=== PATIENT | female | born 1965 | race Two or more races ===

== ENCOUNTER 2022-05-02 17:49 | Inpatient (IN) | payer OTHER ==
[2022-05-02 18:57] VITALS: BMI 38.0
[2022-05-02] MEDS ORDERED: ACETAMINOPHEN 325 MG TABLET (FP) PO PRN ×2 (21:09)
[2022-05-02] MEDS ORDERED: IBUPROFEN 600 MG TABLET (FP) PO PRN (21:09)
[2022-05-02] MEDS ORDERED: MAGNESIUM HYDROX 2400MG/30ML ORAL SUSPENSION 30 ML CUP PO PRN (21:09)
[2022-05-02] MEDS ORDERED: NICOTINE 7 MG/24 HOURS TOPICAL PATCH TD PRN (21:09)
[2022-05-02] MEDS ORDERED: BENZOCAINE/MENTHOL (CHLORASEPTIC ) LOZENGE MM PRN (21:09)
[2022-05-02] MEDS ORDERED: DICYCLOMINE HCL 10 MG CAPSULE PO PRN (21:09)
[2022-05-02] MEDS ORDERED: MAG HYDROX/AL HYDROX/SIMETH 30 ML UNIT-DOSE CUP PO PRN (21:09)
[2022-05-02] MEDS ORDERED: NICOTINE POLACRILEX 2 MG GUM BUC PRN (21:09)
[2022-05-02] MEDS ORDERED: BISMUTH SUBSALICYLATE 524 MG/30 ML PO PRN (21:09)
[2022-05-02] MEDS ORDERED: P-EPHED 60MG/TRIPROLIDI 2.5MG TABLET PO PRN (21:09)
[2022-05-02] MEDS ORDERED: LOPERAMIDE HCL 2 MG CAPSULE PO PRN (21:09)
[2022-05-02] MEDS ORDERED: MAGNESIUM CITRATE 300 ML BOTTLE PO PRN (21:09)
[2022-05-02] MEDS ORDERED: guaiFENesin 200 MG/10 ML 10 ML UNIT-DOSE CUPS PO PRN (21:09)
[2022-05-02] MEDS ORDERED: IBUPROFEN 400 MG TABLET (FP) PO PRN (21:09)
[2022-05-02] MEDS ORDERED: chlordiazePOXIDE HCL 25 MG CAPSULE PO PRN (21:14)
[2022-05-02] MEDS: THIAMINE HCL 100 MG TABLET (FP) PO SCH (23:58)
[2022-05-02] MEDS: MELATONIN 5 MG TABLETS PO PRN (23:59)
[2022-05-02] MEDS: METHOCARBAMOL 500 MG TABLET PO PRN (23:59)
[2022-05-02] MEDS: hydrOXYzine PAMOATE 25 MG CAPSULE (FP) PO PRN (23:59)
[2022-05-02] MEDS: chlordiazePOXIDE HCL 25 MG CAPSULE PO SCH (23:59)
[2022-05-03] MEDS: chlordiazePOXIDE HCL 25 MG CAPSULE PO SCH ×2 (06:28→11:09)
[2022-05-03] MEDS ORDERED: methaDONE HCL 10 MG TABLET PO ONE (10:38)
[2022-05-03] MEDS: PRENATAL VITAMINS W/ FOLIC ACID TABLET (FP) PO SCH (11:08)
[2022-05-03] MEDS: METHOCARBAMOL 500 MG TABLET PO PRN (11:08)
[2022-05-03] MEDS: ASPIRIN 81 MG CHEWABLE TABLETS PO SCH (11:09)
[2022-05-03 12:44] LABS: CHLORIDE 91 mmol/L (98-107); SODIUM 133 mmol/L (136-145)
[2022-05-03 12:49] LABS: HEMATOCRIT 33.3 % (32.4-45.2); HEMOGLOBIN 10.8 GM/dL (10.7-15.3); MCH 26.7 pg (25.7-33.7); MCHC 32.4 g/dl (32.0-36.0); MEAN CELL VOLUME 82.4 fl (80-96); MEAN PLT VOLUME 8.3 fl (7.5-11.1); PLATELET COUNT 115 10^3/uL (134-434); RBC 4.04 M/mm3 (3.60-5.2); RDW 15.9 % (11.6-15.6); WHITE BLOOD COUNT 3.7 K/mm3 (4.0-10.0)
[2022-05-03 12:52] LABS: BLOOD UREA NITROGEN 10.7 mg/dL (7-18); CALCIUM 8.1 mg/dL (8.5-10.1); CO2 35 mmol/L (21-32); GLUCOSE,RANDOM 104 mg/dL (74-106)
[2022-05-03 12:53] LABS: ALBUMIN 2.3 g/dl (3.4-5.0)
[2022-05-03 12:55] LABS: CREATININE 0.9 mg/dL (0.55-1.3); SGPT/ALT 128 U/L (13-61)
[2022-05-03 12:56] LABS: BILIRUBIN,TOTAL 1.3 mg/dL (0.2-1); SGOT/AST 162 U/L (15-37)
[2022-05-03 12:57] LABS: TOT PROT 5.6 g/dl (6.4-8.2)
[2022-05-03 12:59] LABS: ALK PHOS 194 U/L (45-117)
[2022-05-03 13:05] LABS: ANION GAP 8 MMOL/L (8-16)
[2022-05-03] MEDS ORDERED: LORazepam 1 MG TABLET PO PRN (13:23)
[2022-05-03] MEDS ORDERED: MAGNESIUM HYDROX 2400MG/30ML ORAL SUSPENSION 30 ML CUP PO ONE (13:38)
[2022-05-03] MEDS ORDERED: POTASSIUM CHLORIDE ORAL LIQUID 20 MEQ/15 ML PO ONE ×2 (14:00→18:00)
[2022-05-03] MEDS: DOCUSATE SODIUM 100 MG CAPSULE (FP) PO SCH (14:07)
[2022-05-03] MEDS: CALCIUM 250MG/VIT-D 125 UNITS 1 COMBO TABLET PO SCH (15:48)
[2022-05-03] MEDS: LORazepam 2 MG TABLET PO SCH (19:14)
[2022-05-03] MEDS: hydrOXYzine PAMOATE 25 MG CAPSULE (FP) PO PRN (19:14)
[2022-05-04] MEDS: LORazepam 2 MG TABLET PO SCH ×5 (00:11→22:39)
[2022-05-04] MEDS: ASPIRIN 81 MG CHEWABLE TABLETS PO SCH ×3 (00:11→22:38)
[2022-05-04] MEDS: THIAMINE HCL 100 MG TABLET (FP) PO SCH ×2 (00:12→22:39)
[2022-05-04] MEDS: DOCUSATE SODIUM 100 MG CAPSULE (FP) PO SCH ×4 (00:12→22:38)
[2022-05-04] MEDS ORDERED: chlordiazePOXIDE HCL 25 MG CAPSULE PO SCH (05:00)
[2022-05-04] MEDS ORDERED: methaDONE HCL 10 MG TABLET PO ONE (06:00)
[2022-05-04] MEDS: PRENATAL VITAMINS W/ FOLIC ACID TABLET (FP) PO SCH (10:43)
[2022-05-04] MEDS: CALCIUM 250MG/VIT-D 125 UNITS 1 COMBO TABLET PO SCH (10:43)
[2022-05-04] MEDS: METHOCARBAMOL 500 MG TABLET PO PRN ×2 (10:44→18:01)
[2022-05-04] MEDS: hydrOXYzine PAMOATE 25 MG CAPSULE (FP) PO PRN (18:01)
[2022-05-04] MEDS: MELATONIN 5 MG TABLETS PO PRN (22:38)
[2022-05-05] MEDS ORDERED: chlordiazePOXIDE HCL 10 MG CAPSULE PO PRN
[2022-05-05] MEDS ORDERED: chlordiazePOXIDE HCL 10 MG CAPSULE PO SCH (05:00)
[2022-05-05] MEDS: DOCUSATE SODIUM 100 MG CAPSULE (FP) PO SCH ×3 (06:05→22:59)
[2022-05-05] MEDS: LORazepam 1 MG TABLET PO SCH ×4 (06:05→22:59)
[2022-05-05] MEDS: hydrOXYzine PAMOATE 25 MG CAPSULE (FP) PO PRN (06:05)
[2022-05-05] MEDS: ASPIRIN 81 MG CHEWABLE TABLETS PO SCH ×2 (10:28→22:59)
[2022-05-05] MEDS: PRENATAL VITAMINS W/ FOLIC ACID TABLET (FP) PO SCH (10:28)
[2022-05-05] MEDS: CALCIUM 250MG/VIT-D 125 UNITS 1 COMBO TABLET PO SCH (10:28)
[2022-05-05] MEDS: METHOCARBAMOL 500 MG TABLET PO PRN (10:28)
[2022-05-05] MEDS ORDERED: methaDONE HCL 10 MG TABLET PO ONE (12:07)
[2022-05-05] MEDS ORDERED: cloNIDine HCL 0.1 MG TABLET PO PRN (14:21)
[2022-05-05] MEDS: ENALAPRIL MALEATE 10 MG TABLET PO SCH (15:06)
[2022-05-05] MEDS: THIAMINE HCL 100 MG TABLET (FP) PO SCH (22:59)
[2022-05-06] MEDS ORDERED: LORazepam 0.5 MG TABLET PO PRN
[2022-05-06] MEDS ORDERED: chlordiazePOXIDE HCL 10 MG CAPSULE PO SCH (05:00)
[2022-05-06] MEDS ORDERED: methaDONE HCL 40 MG DISPERSABLE TABLET PO SCH (06:00)
[2022-05-06] MEDS: LORazepam 0.5 MG TABLET PO SCH ×4 (06:05→23:00)
[2022-05-06] MEDS: DOCUSATE SODIUM 100 MG CAPSULE (FP) PO SCH ×3 (06:05→22:58)
[2022-05-06] MEDS: ENALAPRIL MALEATE 10 MG TABLET PO SCH (10:43)
[2022-05-06] MEDS: PRENATAL VITAMINS W/ FOLIC ACID TABLET (FP) PO SCH (10:43)
[2022-05-06] MEDS: ASPIRIN 81 MG CHEWABLE TABLETS PO SCH ×2 (10:43→22:58)
[2022-05-06] MEDS: CALCIUM 250MG/VIT-D 125 UNITS 1 COMBO TABLET PO SCH (10:43)
[2022-05-06] MEDS: METHOCARBAMOL 500 MG TABLET PO PRN ×2 (10:46→19:37)
[2022-05-06] MEDS: ONDANSETRON *ODT* 4 MG TABLET SL PRN (11:01)
[2022-05-06] MEDS: THIAMINE HCL 100 MG TABLET (FP) PO SCH (22:58)
[2022-05-06] MEDS: MELATONIN 5 MG TABLETS PO PRN (22:58)
[2022-05-07] MEDS: ONDANSETRON *ODT* 4 MG TABLET SL PRN (04:00)
[2022-05-07] MEDS ORDERED: LORazepam 0.5 MG TABLET PO ONE (05:00)
[2022-05-07] MEDS ORDERED: chlordiazePOXIDE HCL 10 MG CAPSULE PO ONE (05:00)
[2022-05-07] MEDS: DOCUSATE SODIUM 100 MG CAPSULE (FP) PO SCH (06:16)
[2022-05-07] MEDS ORDERED: TRIMETHOBENZAMIDE HCL 200MG/2ML INJ IM PRN (09:13)
[2022-05-07] MEDS: ASPIRIN 81 MG CHEWABLE TABLETS PO SCH (11:14)
[2022-05-07] MEDS: hydrOXYzine PAMOATE 25 MG CAPSULE (FP) PO PRN (11:14)
[2022-05-07] MEDS: PRENATAL VITAMINS W/ FOLIC ACID TABLET (FP) PO SCH (11:14)
[2022-05-07] MEDS: ENALAPRIL MALEATE 10 MG TABLET PO SCH (11:14)
[2022-05-07] MEDS: CALCIUM 250MG/VIT-D 125 UNITS 1 COMBO TABLET PO SCH (11:14)
[2022-05-07 13:29] VITALS: BP 147/102; PULSE 120; RESP 16; TEMP 97.1
== END 2022-05-07 13:45 | disposition short-term general hospital (02) | DRG 773 ==
LOC: YASAS 17:49 → Y6N 23:14
PROVIDERS: ADMIT Allergy & Immunology; ATTEND Surgery
PROC: HZ2ZZZZ Detoxification Services for Substance Abuse Treatment (ICD-10-PCS; principal; 2022-05-02)
DX: F10.230 Alcohol dependence with withdrawal, uncomplicated (principal); F11.20 Opioid dependence, uncomplicated; F17.210 Nicotine dependence, cigarettes, uncomplicated; E58 Dietary calcium deficiency; I10 Essential (primary) hypertension; R94.31 Abnormal electrocardiogram [ECG] [EKG]; R79.89 Other specified abnormal findings of blood chemistry; R74.8 Abnormal levels of other serum enzymes; Z59.00 Homelessness unspecified
CPT/HCPCS: 36415; 80053; 82962; 84132; 84450; 85027; 86593; 86780; 87811; 93005; 93010; C9803-CS; Q0162; U0003; U0005